=== PATIENT | female | born 1950 | race Caucasian/White ===

== ENCOUNTER 2019-06-15 15:26 | Outpatient (REF) | payer SELFPAY ==
[2019-06-15 16:46] LABS: Estmated Average Glucose 111; Hemoglobin A1C 5.5 % (4.0-6.0)
[2019-06-15 17:49] LABS: Chol HDL Ratio 3.89 mg/dL (0.0-4.40); Cholesterol 237 mg/dL (0-200); Glucose 79 mg/dL (65-115); HDL Cholesterol 61 mg/dL (60-100); LDL Cholesterol Calculated 158 mg/dL (50-129); LDL HDL Ratio 2.59 RATIO (0.00-3.22); Triglycerides 91 mg/dL (0-150)
== END 2019-06-15 15:27 | disposition home or self-care (01) ==
LOC: LAB 15:26
PROVIDERS: Family Provider Family Medicine; PCP Family Medicine; Visit Provider Dermatology
DX: Z13.9 Encounter for screening, unspecified (principal)
CPT/HCPCS: 80061; 82947; 83036

== ENCOUNTER → 2019-07-27 11:09 | Outpatient (BNVA) | payer SELFPAY | PROVIDERS: Family Provider Family Medicine; PCP Family Medicine; Visit Provider Registered Nurse | DX: G89.29 Other chronic pain (principal) | CPT/HCPCS: 80053 ==

== ENCOUNTER 2019-12-22 11:25 | Outpatient (CLI) | payer MEDICARE, SELFPAY ==
--- NOTE | 2019-12-22 11:33 | XR_ITS ---
WS: [id number] TOE RIGHT TECHNIQUE: 3 views of the right First toe CLINICAL INFORMATION: fracture toe COMPARISON: None. FINDINGS: Soft tissue edema first digit. No acute fractures. Hammertoe deformities. Metatarsals appear normal. XR/XR toe RT min 2V [id number] IMPRESSION: Soft tissue edema. No visualized fractures first digit.
== END 2019-12-22 11:26 | disposition home or self-care (01) ==
LOC: RADWPI 11:32
PROVIDERS: Family Provider Family Medicine; PCP Family Medicine; Visit Provider Family Medicine
DX: S92.919A Unspecified fracture of unspecified toe(s), initial encounter for closed fracture (principal); R60.0 Localized edema; X58.XXXA Exposure to other specified factors, initial encounter
CPT/HCPCS: 73660

== ENCOUNTER → 2020-04-18 09:37 | Outpatient (BNVA) | payer MEDICARE, SELFPAY | PROVIDERS: Family Provider Family Medicine; PCP Family Medicine; Visit Provider Nurse Practitioner Family | DX: R53.83 Other fatigue (principal); M54.2 Cervicalgia; R03.0 Elevated blood-pressure reading, without diagnosis of hypertension; R51.9 Headache, unspecified | CPT/HCPCS: 80053; 80061; 84443 ==

== ENCOUNTER → 2020-04-23 10:03 | Outpatient (BNVA) | payer MEDICARE, SELFPAY | PROVIDERS: Family Provider Family Medicine; PCP Family Medicine; Visit Provider Nurse Practitioner Family | DX: M54.2 Cervicalgia (principal); M54.5 Low back pain; G89.29 Other chronic pain | CPT/HCPCS: 86038; 86431 ==

== ENCOUNTER 2020-05-03 08:34 | Outpatient (CLI) | payer MEDICARE, SELFPAY ==
--- NOTE | 2020-05-03 08:45 | MR_ITS ---
WS: [id number] MRI CERVICAL SPINE NONCONTRAST TECHNIQUE: Sagittal T1, T2 and STIR imaging. Axial T2, gradient, and fiesta imaging. CLINICAL INFORMATION: M54.2 - Cervicalgia COMPARISON: None. FINDINGS: Straightening of the normal cervical lordosis. Cord signal is normal. Disc osteophyte complexes at C4 -C5 and C5-C6 with mild central canal stenosis and slight contact of the cervical cord. C2-C3: Normal. C3-C4: Minimal disc bulging. Mild facet arthropathy. Mild left foraminal narrowing. C4-C5: Disc osteophyte complex with endplate ridging. Severe left and moderate right bony foraminal n arrowing. Moderate facet arthropathy. Mild central canal stenosis with slight indentation on cervical cord. C5-C6: Disc osteophyte complex with small central disc osteophyte protrusion. Mild central canal sten osis with contact of the cervical cord. Moderate left and mild to moderate right bony foraminal narro wing. C6-C7: Disc osteophytic ridging. Mild left and no significant right foraminal narrowing. Spinal canal is patent. C7-T1: Normal Visualized brain stem structures: Normal. Prevertebral soft tissues: Normal. MR/MR cervical spin wo con* [id number] IMPRESSION: 1. Straightening of the normal cervical lordosis. Cord signal is normal. 2. Mild central canal stenosis C4-C5 and C5-C6 due to small disc osteophyte co mplexes with slight contact of the cervical cord. 3. Moderate to severe left C4-C5 and moderate left C5-C6 bony foraminal narrow ing.
== END 2020-05-03 08:35 | disposition home or self-care (01) ==
PROVIDERS: Family Provider Family Medicine; PCP Family Medicine; Visit Provider Nurse Practitioner Family
DX: M48.02 Spinal stenosis, cervical region (principal); M25.78 Osteophyte, vertebrae
CPT/HCPCS: 72141

== ENCOUNTER → 2020-05-14 09:37 | Outpatient (BNVA) | payer MEDICARE, SELFPAY | PROVIDERS: Family Provider Family Medicine; PCP Family Medicine; Visit Provider Nurse Practitioner Family | DX: R94.4 Abnormal results of kidney function studies (principal) | CPT/HCPCS: 80048 ==

== ENCOUNTER → 2021-08-14 09:21 | Outpatient (BNVA) | payer MEDICARE, SELFPAY | PROVIDERS: Family Provider Family Medicine; PCP Family Medicine; Visit Provider Nurse Practitioner Family | DX: T14.8XXA Other injury of unspecified body region, initial encounter (principal); X58.XXXA Exposure to other specified factors, initial encounter | CPT/HCPCS: 85025 ==

== ENCOUNTER → 2022-09-16 15:48 | Outpatient (BNVA) | payer MEDICARE, SELFPAY | PROVIDERS: Family Provider Family Medicine; PCP Family Medicine; Visit Provider Family Medicine | DX: E78.00 Pure hypercholesterolemia, unspecified (principal) | CPT/HCPCS: 80053; 80061; 85025 ==

== ENCOUNTER 2023-01-18 14:03 | Outpatient (CLI) | payer MEDICARE, SELFPAY ==
--- NOTE | 2023-01-18 14:08 | MM_ITS ---
WS: [id number] BILATERAL 3D TOMOSYNTHESIS DIGITAL SCREENING MAMMOGRAM WITH CAD CLINICAL INFORMATION: Z00.00 - Encounter for general adult medical examination ... HISTORY: Screening mammogram. No current complaints. COMPARISON: 2015 TECHNIQUE: Bilateral CC and MLO views. FINDINGS: Fatty-replaced breasts bilaterally. No suspicious focal mass, asymmetry, calcifications, or senior sharepoint architect ural distortion. No evidence of malignancy. IMPRESSION: MM/[place] [id number] BI-RADS: 1-Negative FOLLOW UP: 1 Year Follow-up Recommend return to annual screening mammography.
== END 2023-01-18 14:04 | disposition home or self-care (01) ==
PROVIDERS: PCP Family Medicine; Visit Provider Family Medicine
DX: Z12.31 Encounter for screening mammogram for malignant neoplasm of breast (principal)
CPT/HCPCS: 77063; 77067

== ENCOUNTER → 2023-02-08 14:58 | Outpatient (BNVA) | payer MEDICARE, SELFPAY | PROVIDERS: PCP Family Medicine; Visit Provider Nurse Practitioner Family | DX: R68.89 Other general symptoms and signs (principal); Z11.52 Encounter for screening for COVID-19 | CPT/HCPCS: 87400; 87426 ==

== ENCOUNTER → 2023-06-09 15:36 | Outpatient (BNVA) | payer MEDICARE, SELFPAY | PROVIDERS: PCP Family Medicine; Visit Provider Family Medicine | DX: E78.00 Pure hypercholesterolemia, unspecified (principal) | CPT/HCPCS: 80053; 80061; 85025 ==

== ENCOUNTER → 2023-06-21 08:58 | Outpatient (BNVA) | payer MEDICARE, SELFPAY | PROVIDERS: PCP Family Medicine; Referring Provider Family Medicine; Visit Provider Surgery | DX: K22.2 Esophageal obstruction (principal); Z12.11 Encounter for screening for malignant neoplasm of colon; R13.10 Dysphagia, unspecified | CPT/HCPCS: 99204 ==

== ENCOUNTER 2023-07-28 11:34 | Day surgery (SDC) | payer MEDICARE, SELFPAY ==
[2023-07-28 11:54] VITALS: BP 149/91; PULSE 79; RESP 18; TEMP 36.4; O2SAT 93; BMI 32.5
[2023-07-28] MEDS: sodium chloride 0.9% 1,000 ML 30 ML IV (11:58)
--- NOTE | 2023-07-28 13:27 | ANES.PREANE2 ---
Pre-Anesthetic Assessment Height/Weight: Height 1.63 m Weight 86.183 kg Temp Pulse Resp BP Pulse Ox O2 Del Method 97.6 F 79 18 149/91 93 Room Air 07/28/23 11:54 07/28/23 11:54 07/28/23 11:54 07/28/23 11:54 07/28/23 11:54 07/28/23 11:54 Preop Diagnosis: esophageal stricture Operation Date: 07/28/23 12:45 Proposed Procedures p EGD with ballon dialation 48757, Colon 17025 G0121 K22.2,Z12.11(Not Applicable) - Farooq Marx DO s Colonoscopy(Not Applicable) - Farooq Marx DO Familial anesthetic complications: none Was Beta Disha taken within 24 hours: N/A Was Clonidine taken within 24 hours: N/A Last intake: Intake Last Liquid Date 07/27/23 Last Liquid Time 20:00 Last Solid Date 07/26/23 Last Solid Time 20:00 Social No alcohol and No tobacco Exam alert, No oriented x 3, No clear to auscultation bilaterally and No regular rate & rhythm Airway Submandibular: within normal limits Cervical ROM: within normal limits Mallampati: Class II Dentition: false and full Pulmonary None reported CV/HEM None reported None reported Hepatic None reported GI Gastroesophageal Reflux Disease (rare) dysphagia Metabolic Hyperlipidemia Musc/skel Lower Back Pain Neuropsych None reported Anesthetic Plan ASA status: 2 Anesthesia: MAC Medications/Allergies Home Medications Medication Instructions Recorded Confirmed Last Taken Type rosuvastatin 20 mg tablet 20 mg PO DAILY #90 tabs 09/16/22 07/28/23 07/25/23 Rx hydrocodone 5 mg-acetaminophen 325 1 tab PO Q8H PRN pain 30 days #90 07/22/23 07/28/23 07/25/23 Rx mg tablet tabs aspirin 325 mg tablet 325 mg PO Q4H PRN Pain 07/26/23 07/28/23 07/25/23 History meloxicam 15 mg tablet 15 mg PO DAILY 07/26/23 07/28/23 07/25/23 History sumatriptan succinate 50 mg tablet 50 mg PO PRN PRN Migraine Headache 07/26/23 07/28/23 07/24/23 History Allergies Allergy/AdvReac Type Severity Reaction Status Date / Time influenza virus vacc Allergy ADR-Muscle Verified 07/28/23 11:52 trivalent, split Pain [From Fluzone] Current Medications Generic Name Dose Route Start Last Admin Trade Name Rolanda PRN Reason Stop Dose Admin Sodium Chloride 1,000 mls @ 30 mls/hr 07/28/23 11:45 07/28/23 11:58 Sodium Chloride 0.9% IV 07/29/23 11:44 30 mls/hr .Q24H ESTELLE Administration PFSH Anesthesia Medical History Esophageal stricture Hypercholesterolemia DJD (degenerative joint disease), cervical Chronic back pain Migraine aura without headache Social History Smoking and tobacco/nicotine status: never used tobacco/nicotine Alcohol intake: never Substance/Drug Use: never Adopted: No Caregiver/support person: Yes Lives independently: No Household members: family Current occupational status: employed Do you think of yourself as: Straight/Heterosexual Current gender identity: Female Data Anesthesia Cardiac Studies: No Data to Display
--- NOTE | 2023-07-28 13:52 | PM.HP ---
Providers/Chief Complaint Primary Care Provider: Danny Pang MD Chief Complaint: K22.2, Z12.11 History of Present Illness Shauna Marx is a 72 year old female Review of Systems General: Reports: 10 or more systems reviewed and unremarkable except in HPI and below Medications/Allergies Home Medications Medication Instructions Recorded Confirmed Last Taken Type rosuvastatin 20 mg tablet 20 mg PO DAILY #90 tabs 09/16/22 07/28/23 07/25/23 Rx hydrocodone 5 mg-acetaminophen 325 1 tab PO Q8H PRN pain 30 days #90 07/22/23 07/28/23 07/25/23 Rx mg tablet tabs aspirin 325 mg tablet 325 mg PO Q4H PRN Pain 07/26/23 07/28/23 07/25/23 History meloxicam 15 mg tablet 15 mg PO DAILY 07/26/23 07/28/23 07/25/23 History sumatriptan succinate 50 mg tablet 50 mg PO PRN PRN Migraine Headache 07/26/23 07/28/23 07/24/23 History Allergies Allergy/AdvReac Type Severity Reaction Status Date / Time influenza virus vacc Allergy ADR-Muscle Verified 07/28/23 11:52 trivalent, split Pain [From Fluzone] PFSH Acute PFSH: Medical History Esophageal stricture Hypercholesterolemia DJD (degenerative joint disease), cervical Chronic back pain Migraine aura without headache Social History Smoking and tobacco/nicotine status: never used tobacco/nicotine Alcohol intake: never Substance/Drug Use: never Adopted: No Caregiver/support person: Yes Lives independently: No Household members: family Current occupational status: employed Do you think of yourself as: Straight/Heterosexual Current gender identity: Female Vitals/I&O/Wt Last Vital Signs Temp 97.6 F 07/28/23 11:54 Pulse 79 07/28/23 11:54 Resp 18 07/28/23 11:54 BP 149/91 07/28/23 11:54 Pulse Ox 93 07/28/23 11:54 O2 Del Method Room Air 07/28/23 11:54 Weight last 48 hrs Weight 190 lb A&P Assessment and plan (1) Colon cancer screening: (2) Dysphagia: Plan EGD and colonoscopy Attestations Medical Necessity Statement*: Home Coding Level of Care Code Acute Code for Chg Fwd Diagnoses Colon cancer screening Z12.11 Dysphagia R13.10
[2023-07-28 14:24] VITALS: BP 140/81; PULSE 81; RESP 18; TEMP 36.3; O2SAT 96
--- NOTE | 2023-07-28 15:29 | ANE.PACU2 ---
Inpatient post-anesthesia follow up: Airway intact: Yes Vital signs: Temperature 97.4 F Pulse Rate 81 Respiratory Rate 18 Blood Pressure 140/81 Pulse Oximetry 96 Oxygen Delivery Me thod Room Air Oxygen Flow Rate Fraction of Inspir ed Oxygen Hydration adequate: Yes Nausea and vomiting: No Pain level: 2 Mental status: Baseline
== END 2023-07-28 15:00 | disposition home or self-care (01) ==
PROVIDERS: PCP Family Medicine; Visit Provider Surgery
PROC: 0DJD8ZZ Inspection of Lower Intestinal Tract, Via Natural or Artificial Opening Endoscopic (ICD-10-PCS; CPT 45378; 2023-07-28 12:45)
DX: Z12.11 Encounter for screening for malignant neoplasm of colon (principal); R13.10 Dysphagia, unspecified; Z79.82 Long term (current) use of aspirin; K22.2 Esophageal obstruction; K21.9 Gastro-esophageal reflux disease without esophagitis; E78.5 Hyperlipidemia, unspecified
CPT/HCPCS: 43249; G0121; J2704; J7030

== ENCOUNTER 2023-08-18 11:57 | Day surgery (SDC) | payer MEDICARE, SELFPAY ==
--- NOTE | 2023-08-18 11:40 | ANES.PREANE2 ---
Pre-Anesthetic Assessment Height/Weight: Height 1.63 m Operation Date: 08/18/23 12:45 Proposed Procedures p EGD Dilation W/ Balloon(Not Applicable) - Farooq Marx DO Was Beta Disha taken within 24 hours: N/A Social No alcohol and No tobacco Exam alert, oriented x 3, clear to auscultation bilaterally and regular rate & rhythm Airway Submandibular: within normal limits Mallampati: Class II Metabolic Hyperlipidemia Anesthetic Plan ASA status: 2 Anesthesia: MAC Medications/Allergies Home Medications Medication Instructions Recorded Confirmed Last Taken Type rosuvastatin 20 mg tablet 20 mg PO DAILY #90 tabs 09/16/22 08/16/23 08/14/23 Rx hydrocodone 5 mg-acetaminophen 325 1 tab PO Q8H PRN pain 30 days #90 07/22/23 08/16/23 08/12/23 Rx mg tablet tabs aspirin 325 mg tablet 325 mg PO Q4H PRN Pain 07/26/23 08/16/23 08/13/23 History meloxicam 15 mg tablet 15 mg PO DAILY 07/26/23 08/16/23 08/14/23 History sumatriptan succinate 50 mg tablet 50 mg PO PRN PRN Migraine Headache 07/26/23 08/16/23 07/24/23 History Allergies Allergy/AdvReac Type Severity Reaction Status Date / Time No Known Allergies Allergy Verified 08/16/23 09:49 [facility] Anesthesia Medical History Esophageal stricture Hypercholesterolemia DJD (degenerative joint disease), cervical Chronic back pain Migraine aura without headache Social History Smoking and tobacco/nicotine status: never used tobacco/nicotine Alcohol intake: never Substance/Drug Use: never Adopted: No Caregiver/support person: Yes Lives independently: No Household members: family Current occupational status: employed Do you think of yourself as: Straight/Heterosexual Current gender identity: Female Data Anesthesia Cardiac Studies: No Data to Display
[2023-08-18 12:12] VITALS: BP 165/110; PULSE 78; RESP 18; TEMP 36.3; O2SAT 94; BMI 32.5
[2023-08-18] MEDS: sodium chloride 0.9% 1,000 ML 30 ML IV (12:19)
--- NOTE | 2023-08-18 13:01 | PM.HP ---
Providers/Chief Complaint Primary Care Provider: Danny Pang MD Chief Complaint: R13.10 History of Present Illness Shauna Marx is a 72 year old female Review of Systems General: Reports: 10 or more systems reviewed and unremarkable except in HPI and below Medications/Allergies Home Medications Medication Instructions Recorded Confirmed Last Taken Type rosuvastatin 20 mg tablet 20 mg PO DAILY #90 tabs 09/16/22 08/16/23 08/14/23 Rx hydrocodone 5 mg-acetaminophen 325 1 tab PO Q8H PRN pain 30 days #90 07/22/23 08/16/23 08/12/23 Rx mg tablet tabs aspirin 325 mg tablet 325 mg PO Q4H PRN Pain 07/26/23 08/16/23 08/13/23 History meloxicam 15 mg tablet 15 mg PO DAILY 07/26/23 08/16/23 08/14/23 History sumatriptan succinate 50 mg tablet 50 mg PO PRN PRN Migraine Headache 07/26/23 08/16/23 07/24/23 History Allergies Allergy/AdvReac Type Severity Reaction Status Date / Time No Known Allergies Allergy Verified 08/16/23 09:49 PFSH Acute PFSH: Medical History Esophageal stricture Hypercholesterolemia DJD (degenerative joint disease), cervical Chronic back pain Migraine aura without headache Social History Smoking and tobacco/nicotine status: never used tobacco/nicotine Alcohol intake: never Substance/Drug Use: never Adopted: No Caregiver/support person: Yes Lives independently: No Household members: family Current occupational status: employed Do you think of yourself as: Straight/Heterosexual Current gender identity: Female Vitals/I&O/Wt Last Vital Signs Temp 97.3 F L 08/18/23 12:12 Pulse 78 08/18/23 12:12 Resp 18 08/18/23 12:12 BP 165/110 08/18/23 12:12 Pulse Ox 94 08/18/23 12:12 O2 Del Method Room Air 08/18/23 12:12 Weight last 48 hrs Weight 190 lb A&P Assessment and plan (1) Esophageal stricture: (2) Dysphagia: Plan EGD with possible balloon dilation Attestations Medical Necessity Statement*: Home Coding Level of Care Code Acute Code for Chg Fwd Diagnoses Esophageal stricture K22.2 Dysphagia R13.10
[2023-08-18] MEDS: EPINEPHrine 1 mg/mL INJ XX (13:09)
[2023-08-18 13:29] VITALS: BP 135/85; PULSE 72; RESP 16; TEMP 36.1; O2SAT 90
[2023-08-18 13:45] VITALS: BP 142/95; PULSE 72; RESP 16; O2SAT 93
== END 2023-08-18 13:59 | disposition home or self-care (01) ==
PROVIDERS: PCP Family Medicine; Visit Provider Surgery
DX: R13.10 Dysphagia, unspecified (principal); K22.2 Esophageal obstruction; K29.50 Unspecified chronic gastritis without bleeding; K25.9 Gastric ulcer, unspecified as acute or chronic, without hemorrhage or perforation; E78.5 Hyperlipidemia, unspecified; Z79.82 Long term (current) use of aspirin
CPT/HCPCS: 43239; 43249; 88305; 88342; J0171; J2704; J7030

== ENCOUNTER 2023-09-01 08:50 | Day surgery (SDC) | payer MEDICARE, SELFPAY ==
[2023-09-01 08:57] VITALS: BP 169/96; PULSE 78; RESP 18; TEMP 36.6; O2SAT 93
[2023-09-01] MEDS: sodium chloride 0.9% 1,000 ML 30 ML IV (09:19)
--- NOTE | 2023-09-01 10:04 | ANES.PREANE2 ---
Pre-Anesthetic Assessment Height/Weight: Height 1.63 m Weight 86.183 kg Temp Pulse Resp BP Pulse Ox 97.9 F 78 18 169/96 93 09/01/23 08:57 09/01/23 08:57 09/01/23 08:57 09/01/23 08:57 09/01/23 08:57 Operation Date: 09/01/23 09:45 Proposed Procedures p EGD Dilation W/ Balloon 04688, K22.2(Not Applicable) - Farooq Marx DO Familial anesthetic complications: None Was Beta Disha taken within 24 hours: N/A Was Clonidine taken within 24 hours: N/A Last intake: Intake Last Liquid Date 08/31/23 Last Liquid Time 22:00 Last Solid Date 08/30/23 Last Solid Time 18:30 Social No alcohol and No tobacco Exam alert, oriented x 3, clear to auscultation bilaterally and regular rate & rhythm Airway Submandibular: within normal limits Cervical ROM: within normal limits Mallampati: Class II Dentition: false History/ROS No significant history except as noted and No significant complaints Pulmonary None reported CV/HEM None reported None reported Hepatic None reported GI Peptic Ulcer Disease Esophageal stricture Metabolic Hyperlipidemia [facility] [place] Lower Back Pain and Rheumatoid Arthritis Neuropsych Headache Anesthetic Plan ASA status: 3 Anesthesia: Anesthesia Evaluation, General and MAC Risk of > 500 ml blood loss (7ml/kg in children): No Medications/Allergies Home Medications Medication Instructions Recorded Confirmed Last Taken Type rosuvastatin 20 mg tablet 20 mg PO DAILY #90 tabs 09/16/22 08/30/23 08/30/23 Rx aspirin 325 mg tablet 325 mg PO Q4H PRN Pain 07/26/23 08/30/23 08/26/23 History meloxicam 15 mg tablet 15 mg PO DAILY 07/26/23 08/30/23 08/30/23 History sumatriptan succinate 50 mg tablet 50 mg PO PRN PRN Migraine Headache 07/26/23 08/30/23 09/01/23 History hydrocodone 5 mg-acetaminophen 325 1 tab PO Q8H PRN pain 30 days #90 08/18/23 08/30/23 08/28/23 Rx mg tablet tabs pantoprazole 40 mg tablet,delayed 40 mg PO BID 90 days #180 tabs 08/18/23 08/30/23 08/30/23 Rx release sucralfate 1 gram tablet 1 g PO BID 4 weeks #56 tabs 08/18/23 08/30/23 08/30/23 Rx Allergies Allergy/AdvReac Type Severity Reaction Status Date / Time No Known Allergies Allergy Verified 09/01/23 08:53 Current Medications Generic Name Dose Route Start Last Admin Trade Name Freq PRN Reason Stop Dose Admin Sodium Chloride 1,000 mls @ 30 mls/hr 09/01/23 09:00 09/01/23 09:19 Sodium Chloride 0.9% IV 09/02/23 08:59 30 mls/hr .Q24H ESTELLE Administration PFSH Anesthesia Medical History Esophageal stricture Hypercholesterolemia DJD (degenerative joint disease), cervical Chronic back pain Migraine aura without headache Social History Smoking and tobacco/nicotine status: never used tobacco/nicotine Alcohol intake: never Substance/Drug Use: never Adopted: No Caregiver/support person: Yes Lives independently: No Household members: family Current occupational status: employed Do you think of yourself as: Straight/Heterosexual Current gender identity: Female Data Anesthesia Cardiac Studies: No Data to Display
--- NOTE | 2023-09-01 10:34 | PM.HP ---
Providers/Chief Complaint Primary Care Provider: Danny Pang MD Chief Complaint: K22.2 History of Present Illness Shauna Marx is a 72 year old female Review of Systems General: Reports: 10 or more systems reviewed and unremarkable except in HPI and below Medications/Allergies Home Medications Medication Instructions Recorded Confirmed Last Taken Type rosuvastatin 20 mg tablet 20 mg PO DAILY #90 tabs 09/16/22 08/30/23 08/30/23 Rx aspirin 325 mg tablet 325 mg PO Q4H PRN Pain 07/26/23 08/30/23 08/26/23 History meloxicam 15 mg tablet 15 mg PO DAILY 07/26/23 08/30/23 08/30/23 History sumatriptan succinate 50 mg tablet 50 mg PO PRN PRN Migraine Headache 07/26/23 08/30/23 09/01/23 History hydrocodone 5 mg-acetaminophen 325 1 tab PO Q8H PRN pain 30 days #90 08/18/23 08/30/23 08/28/23 Rx mg tablet tabs pantoprazole 40 mg tablet,delayed 40 mg PO BID 90 days #180 tabs 08/18/23 08/30/23 08/30/23 Rx release sucralfate 1 gram tablet 1 g PO BID 4 weeks #56 tabs 08/18/23 08/30/23 08/30/23 Rx Allergies Allergy/AdvReac Type Severity Reaction Status Date / Time No Known Allergies Allergy Verified 09/01/23 08:53 PFSH Acute PFSH: Medical History Esophageal stricture Hypercholesterolemia DJD (degenerative joint disease), cervical Chronic back pain Migraine aura without headache Social History Smoking and tobacco/nicotine status: never used tobacco/nicotine Alcohol intake: never Substance/Drug Use: never Adopted: No Caregiver/support person: Yes Lives independently: No Household members: family Current occupational status: employed Do you think of yourself as: Straight/Heterosexual Current gender identity: Female Vitals/I&O/Wt Last Vital Signs Temp 97.9 F 09/01/23 08:57 Pulse 78 09/01/23 08:57 Resp 18 09/01/23 08:57 BP 169/96 09/01/23 08:57 Pulse Ox 93 09/01/23 08:57 Weight last 48 hrs Weight 190 lb A&P Assessment and plan (1) Esophageal stricture: Plan EGD with balloon dilation Attestations Medical Necessity Statement*: Home Coding Level of Care Code Acute Code for Chg Fwd Diagnoses Esophageal stricture K22.2
[2023-09-01 11:00] VITALS: BP 152/77; PULSE 78; RESP 18; TEMP 36.2; O2SAT 94
[2023-09-01 11:04] VITALS: BP 105/87; PULSE 71; RESP 18; O2SAT 96
[2023-09-01 11:15] VITALS: BP 102/76; PULSE 71; RESP 18; O2SAT 93
--- NOTE | 2023-09-01 14:40 | ANE.PACU2 ---
Inpatient post-anesthesia follow up: Airway intact: Yes Vital signs: Temperature 97.1 F Pulse Rate 71 Respiratory Rate 18 Blood Pressure 102/76 Pulse Oximetry 93 Oxygen Delivery Me thod Room Air Oxygen Flow Rate 2 Fraction of Inspir ed Oxygen Hydration adequate: Yes Nausea and vomiting: No Pain level: 2 Mental status: Baseline
== END 2023-09-01 11:45 | disposition home or self-care (01) ==
PROVIDERS: PCP Family Medicine; Visit Provider Surgery
DX: K22.2 Esophageal obstruction (principal); K29.30 Chronic superficial gastritis without bleeding; E78.00 Pure hypercholesterolemia, unspecified; Z79.899 Other long term (current) drug therapy
CPT/HCPCS: 43239; 43249; 88305; J2704; J7030

== ENCOUNTER → 2023-09-20 09:27 | Outpatient (BNVA) | payer MEDICARE, SELFPAY | PROVIDERS: PCP Family Medicine; Visit Provider Surgery | DX: Z09 Encounter for follow-up examination after completed treatment for conditions other than malignant neoplasm (principal); K22.2 Esophageal obstruction; K29.70 Gastritis, unspecified, without bleeding | CPT/HCPCS: 99214 ==

== ENCOUNTER → 2024-03-15 15:15 | Outpatient (BNVA) | payer MEDICARE, SELFPAY | PROVIDERS: PCP Family Medicine; Visit Provider Family Medicine | DX: J02.9 Acute pharyngitis, unspecified (principal); R68.89 Other general symptoms and signs | CPT/HCPCS: 87400 ==

== ENCOUNTER → 2024-10-19 15:37 | Outpatient (BNVA) | payer MEDICARE, SELFPAY | PROVIDERS: PCP Family Medicine; Visit Provider Family Medicine | DX: E78.00 Pure hypercholesterolemia, unspecified (principal) | CPT/HCPCS: 80053; 80061; 85025 ==